=== PATIENT | female | born 1980 | race Caucasian/White ===

== ENCOUNTER 2019-03-27 04:04 | Emergency (ER) | payer BC ==
[~2019-03-27] VITALS: Ht 154.9 cm; Wt 65.8 kg
[2019-03-27 04:08] VITALS: BP 147/69
[2019-03-27] MEDS ORDERED: acetaminophen 325mg tablet PO ONE (04:15)
[2019-03-27 04:44] LABS: BASOPHILS % (AUTO) 0.2 % (0-1); EOSINOPHILS % (AUTO) 0.4 % (0-6); HEMATOCRIT 39.1 % (35.0-45.0); HEMOGLOBIN 13.3 g/dl (12.0-16.0); LYMPHOCYTES # (AUTO) 0.6 X10'3 (1.1-4.8); LYMPHOCYTES % (AUTO) 7.1 % (21-51); MEAN CORPUSCULAR HEMOGLOBIN 32.1 PG (27.0-31.0); MEAN CORPUSCULAR HGB CONC 34.2 g/dL (33.0-36.5); MONOCYTES # (AUTO) 0.1 X10'3 (0-0.9); MONOCYTES % (AUTO) 1.1 % (2-12); NEUTROPHILS # (AUTO) 7.1 X10'3 (1.8-7.7); NEUTROPHILS % (AUTO) 91.2 % (42-75); PLATELET COUNT 174 X10'3 (140-440); RED BLOOD COUNT 4.15 X10'6 (4.20-5.60); RED CELL DISTRIBUTION WIDTH 12.6 % (11.5-14.5); WHITE BLOOD COUNT 7.8 X10'3 (4.5-11.0)
[2019-03-27 04:47] LABS: PARTIAL THROMBOPLASTIN TIME 29 SECONDS (22-32)
[2019-03-27 04:48] LABS: ALANINE AMINOTRANSFERASE 215 U/L (12-78); ALBUMIN 3.4 G/DL (3.4-5.0); ALBUMIN/GLOBULIN RATIO 0.8 (1.1-1.5); ALKALINE PHOSPHATASE 173 IU/L (46-116); ANION GAP 10 (8-16); ASPARTATE AMINO TRANSFERASE 178 U/L (10-37); BLOOD UREA NITROGEN 7 MG/DL (7-18); BUN/CREATININE RATIO 9.1 (6.6-38.0); CALCIUM 8.5 MG/DL (8.5-10.1); CHLORIDE 99 MMOL/L (99-107); CREATININE 0.77 MG/DL (0.40-0.90); GLUCOSE 133 MG/DL (70-104); POTASSIUM 3.8 MMOL/L (3.5-5.1); SODIUM 134 MMOL/L (135-145); TOTAL CARBON DIOXIDE 24.9 MMOL/L (24-32); TOTAL PROTEIN 7.7 G/DL (6.4-8.2); eGFR 84 ML/MIN
== END 2019-03-27 06:14 | disposition left against medical advice (07) ==
LOC: ER 04:04
DX: R53.1 Weakness (principal); R50.9 Fever, unspecified; M79.10 Myalgia, unspecified site; R79.1 Abnormal coagulation profile; Z53.21 Procedure and treatment not carried out due to patient leaving prior to being seen by health care provider
CPT/HCPCS: 36415; 71045; 80053; 83605; 84145; 85025; 85610; 85730; 87040; 99281

== ENCOUNTER 2024-03-19 12:48 | Emergency (ER) | payer BC, MEDICAID ==
[~2024-03-19] VITALS: Ht 157.5 cm; Wt 76.5 kg
[2024-03-19] MEDS ORDERED: AMOX-580 PO (14:04)
[2024-03-19] MEDS ORDERED: TRAM50TA2 PO (14:04)
[2024-03-19 14:13] VITALS: BP 119/75; PULSE 75; RESP 15; TEMP 98.3; O2SAT 96
== END 2024-03-19 14:14 | disposition home or self-care (01) ==
LOC: ER 12:49
DX: K08.89 Other specified disorders of teeth and supporting structures (principal); Z91.041 Radiographic dye allergy status; Z79.2 Long term (current) use of antibiotics; Z79.899 Other long term (current) drug therapy; Z98.890 Other specified postprocedural states; Z90.710 Acquired absence of both cervix and uterus
CPT/HCPCS: 99283

== ENCOUNTER 2024-12-07 19:40 | Inpatient (IN) | payer MEDICAID ==
[~2024-12-07] VITALS: Ht 157.5 cm; Wt 78.9 kg
[2024-12-07 20:18] LABS: BASOPHILS % (AUTO) 0.3 % (0-1); EOSINOPHILS % (AUTO) 0.2 % (0-6); HEMATOCRIT 41.1 % (35.0-45.0); HEMOGLOBIN 14.1 g/dl (12.0-16.0); LYMPHOCYTES # (AUTO) 0.9 X10'3 (1.1-4.8); LYMPHOCYTES % (AUTO) 5.8 % (21-51); MEAN CORPUSCULAR HEMOGLOBIN 31.7 PG (27.0-31.0); MEAN CORPUSCULAR HGB CONC 34.3 g/dL (33.0-36.5); MEAN CORPUSCULAR VOLUME 92.5 FL (78-98); MONOCYTES # (AUTO) 0.4 X10'3 (0-0.9); MONOCYTES % (AUTO) 2.6 % (2-12); NEUTROPHILS # (AUTO) 14.8 X10'3 (1.8-7.7); NEUTROPHILS % (AUTO) 91.1 % (42-75); PLATELET COUNT 352 X10'3 (140-440); RED BLOOD COUNT 4.45 X10'6 (4.20-5.60); RED CELL DISTRIBUTION WIDTH 12.3 % (11.5-14.5); WHITE BLOOD COUNT 16.3 X10'3 (4.5-11.0)
[2024-12-07 20:32] LABS: ALANINE AMINOTRANSFERASE 46 U/L (12-78); ALBUMIN 4.1 G/DL (3.4-5.0); ALKALINE PHOSPHATASE 87 IU/L (46-116); ANION GAP 11 (8-16); ASPARTATE AMINO TRANSFERASE 21 U/L (10-37); BILIRUBIN,TOTAL 0.7 MG/DL (0.1-1.0); BLOOD UREA NITROGEN 11 MG/DL (7-18); BUN/CREATININE RATIO 15.9 (10.0-20.0); CALCIUM 8.9 MG/DL (8.5-10.1); CHLORIDE 106 MMOL/L (99-107); CREATININE 0.69 MG/DL (0.40-0.90); GLUCOSE 149 MG/DL (70-104); POTASSIUM 3.9 MMOL/L (3.5-5.1); SODIUM 140 MMOL/L (135-145); TOTAL CARBON DIOXIDE 22.9 MMOL/L (24-32); TOTAL PROTEIN 8.1 G/DL (6.4-8.2); eCRCL 83 ML/MIN; eGFR > 90 ML/MIN
[2024-12-07 20:36] LABS: LIPASE > 375 U/L (16-77)
[2024-12-07] MEDS: morphine 4 MG/ML inj SYRINge IV ONE (21:44)
[2024-12-07] MEDS: ondansetron/PF 4mg/2ml inj IV ONE (21:44)
[2024-12-07] MEDS ORDERED: potassium Cl 20 mEq SR tablet PO PRN ×2 (22:40)
[2024-12-07] MEDS ORDERED: docusate sod 100mg capsule PO PRN (22:40)
[2024-12-07] MEDS ORDERED: magnesium hydroxide 30ml (MOM) UD suspension PO PRN (22:40)
[2024-12-07] MEDS ORDERED: potassium Cl 40MEQ/1/2NS 520ml 520 ML IV PRN (22:40)
[2024-12-07] MEDS ORDERED: magnesium sulf-water 2g/50mL 50 ML IV PRN (22:40)
[2024-12-07] MEDS ORDERED: magnesium Cl slow-release 64mg tablet PO PRN (22:40)
[2024-12-07] MEDS ORDERED: mag hydrox/Alum hydrox/simeth 30ml oral suspension PO PRN (22:40)
[2024-12-07] MEDS ORDERED: morphine 2 MG/ML inj. syringe IV PRN (22:40)
[2024-12-07] MEDS ORDERED: magnesium sulf-water 4G/100mL 100 ML IV PRN (22:40)
[2024-12-07 23:12] LABS: HEMOGLOBIN A1C 4.6 % (4.5-6.2)
[2024-12-07] MEDS: piperacillin/tazo 4.5gm/100ml 100 ML IV ONE (23:37)
[2024-12-07] MEDS: normal saline 1000ml 1,000 ML IV SCH (23:41)
[2024-12-07 23:44] LABS: LACTATE DEHYDROGENASE 260 U/L (81-234)
[2024-12-08] MEDS ORDERED: piperacillin/tazo 3.375gm/50ml 50 ML IV SCH
[2024-12-08] MEDS: morphine 2 MG/ML inj. syringe IV PRN (00:40)
[2024-12-08 01:42] LABS: URINE HCG NEGATIVE (NEG)
[2024-12-08 01:47] LABS: BILIRUBIN,URINE NEGATIVE (Neg); COLOR,URINE YELLOW (Yellow); GLUCOSE, URINE 250 mg/dl (Neg); KETONES,URINE 40 mg/dl (Neg); LEUKOCYTE ESTERASE ,URINE NEGATIVE (Neg); NITRITES, URINE NEGATIVE (Neg); OCCULT BLOOD,URINE MODERATE (Neg); PROTEIN,URINE 30 mg/dl (Neg); UROBILINOGEN,URINE 0.2 E.U/dL (0.2-1.0)
[2024-12-08 02:05] LABS: URINE AMPHETAMINE SCREEN NEGATIVE (Neg); URINE BARBITUATE SCREEN NEGATIVE (Neg); URINE BENZODIAZEPINES SCREEN NEGATIVE (Neg); URINE CANNABINOID SCREEN NEGATIVE (Neg); URINE COCAINE SCREEN NEGATIVE (Neg); URINE METHADONE SCREEN NEGATIVE (Neg); URINE OPIATE SCREEN POSITIVE (Neg); URINE PHENCYCLIDINE SCREEN NEGATIVE (Neg)
[2024-12-08 02:17] LABS: CLARITY,URINE SLIGHTLY CLOUDY (Clear); UA COLLECTION TYPE CLN CATCH MIDSTREAM
[2024-12-08 02:18] LABS: AMORPHOUS URATES 1+; BACTERIA,URINE 2+ /HPF (Neg); SQUAMOUS EPITHELIAL CELL,UR MODERATE /LPF (FEW); TRANSITIONAL EPI CELLS,URINE FEW /HPF; WBC,URINE 0-4 /HPF (0-4)
[2024-12-08 03:06] LABS: BASOPHILS # (AUTO) 0.1 X10'3 (0-0.2); BASOPHILS % (AUTO) 0.5 % (0-1); EOSINOPHILS # (AUTO) 0.1 X10'3 (0-0.9); EOSINOPHILS % (AUTO) 0.3 % (0-6); HEMATOCRIT 39.5 % (35.0-45.0); LYMPHOCYTES # (AUTO) 1.5 X10'3 (1.1-4.8); LYMPHOCYTES % (AUTO) 9.6 % (21-51); MEAN CORPUSCULAR HEMOGLOBIN 30.9 PG (27.0-31.0); MEAN CORPUSCULAR HGB CONC 32.9 g/dL (33.0-36.5); MONOCYTES # (AUTO) 0.8 X10'3 (0-0.9); MONOCYTES % (AUTO) 5.2 % (2-12); NEUTROPHILS # (AUTO) 13.2 X10'3 (1.8-7.7); NEUTROPHILS % (AUTO) 84.4 % (42-75); PLATELET COUNT 326 X10'3 (140-440); RED CELL DISTRIBUTION WIDTH 12.5 % (11.5-14.5); WHITE BLOOD COUNT 15.6 X10'3 (4.5-11.0)
[2024-12-08 03:33] LABS: ALANINE AMINOTRANSFERASE 40 U/L (12-78); ALBUMIN 3.5 G/DL (3.4-5.0); ALKALINE PHOSPHATASE 77 IU/L (46-116); ANION GAP 8 (8-16); ASPARTATE AMINO TRANSFERASE 18 U/L (10-37); BILIRUBIN,TOTAL 0.7 MG/DL (0.1-1.0); BLOOD UREA NITROGEN 9 MG/DL (7-18); BUN/CREATININE RATIO 13.2 (10.0-20.0); CALCIUM 8.1 MG/DL (8.5-10.1); CHLORIDE 107 MMOL/L (99-107); CHOL/HDL RATIO 3.9 (0.00-4.99); CHOLESTEROL 192 MG/DL (0-200); CREATININE 0.68 MG/DL (0.40-0.90); GLUCOSE 110 MG/DL (70-104); HDL CHOLESTEROL 49 MG/DL (35-60); LDL CHOLESTEROL 121 MG/DL (50-100); POTASSIUM 3.9 MMOL/L (3.5-5.1); SODIUM 141 MMOL/L (135-145); TOTAL PROTEIN 7.1 G/DL (6.4-8.2); TRIGLYCERIDES 40 MG/DL (20-135); eCRCL 84 ML/MIN; eGFR > 90 ML/MIN
[2024-12-08 07:29] VITALS: BP 115/62; PULSE 67; RESP 20; TEMP 98.1; O2SAT 98
[2024-12-08] MEDS: piperacillin/tazo 3.375gm/50ml 50 ML IV SCH (07:58)
[2024-12-08] MEDS: pantoprazole 40mg Tablet.DR PO SCH (07:58)
[2024-12-08] MEDS: morphine 2 MG/ML inj. syringe IV ONE (07:58)
[2024-12-08] MEDS: heparin, porcine 5000 units/ml vial SQ SCH (07:59)
[2024-12-08] MEDS: K and/or MAG REPLACEMENT MC SCH (08:00)
[2024-12-08] MEDS: nicotine 14mg patch - 24hr TD SCH (08:00)
[2024-12-08] MEDS ORDERED: HYDROcodone/acetaminophen 5mg/325mg tablet PO PRN (08:30)
[2024-12-08 10:00] VITALS: BP 121/71; PULSE 77; RESP 20; TEMP 98.7; O2SAT 99
[2024-12-08] MEDS: HYDROcodone/acetaminophen 10/325mg tab PO PRN (10:26)
[2024-12-08] MEDS: ringers solution, lacted 1,000 ML IV SCH (10:27)
[2024-12-08] MEDS ORDERED: NO HOME MEDS (16:18)
[2024-12-08 18:00] VITALS: BP 94/47; PULSE 91; RESP 14; TEMP 97.7; O2SAT 95
[2024-12-08] MEDS: HYDROcodone/acetaminophen 5mg/325mg tablet PO PRN (19:24)
[2024-12-08 19:30] VITALS: RESP 18; O2SAT 95
[2024-12-08 20:00] VITALS: RESP 14; O2SAT 95
[2024-12-08 22:00] VITALS: BP 97/53; PULSE 79; RESP 16; TEMP 100; O2SAT 99
[2024-12-08] MEDS: acetaminophen 325mg tablet PO PRN (23:27)
[2024-12-08] MEDS: ondansetron/PF 4mg/2ml inj IV PRN (23:57)
[2024-12-09 06:00] VITALS: BP 107/52; PULSE 68; RESP 14; TEMP 97.9; O2SAT 98
[2024-12-09 06:30] LABS: BASOPHILS % (AUTO) 0.2 % (0-1); EOSINOPHILS # (AUTO) 0.1 X10'3 (0-0.9); EOSINOPHILS % (AUTO) 0.9 % (0-6); HEMATOCRIT 34.6 % (35.0-45.0); LYMPHOCYTES # (AUTO) 1.3 X10'3 (1.1-4.8); MEAN CORPUSCULAR HEMOGLOBIN 32.5 PG (27.0-31.0); MEAN CORPUSCULAR HGB CONC 34.7 g/dL (33.0-36.5); MEAN CORPUSCULAR VOLUME 93.7 FL (78-98); MEAN PLATELET VOLUME 9.5 FL (7.4-10.4); MONOCYTES % (AUTO) 7.1 % (2-12); NEUTROPHILS # (AUTO) 11.7 X10'3 (1.8-7.7); NEUTROPHILS % (AUTO) 82.8 % (42-75); PLATELET COUNT 193 X10'3 (140-440); RED CELL DISTRIBUTION WIDTH 12.3 % (11.5-14.5); WHITE BLOOD COUNT 14.1 X10'3 (4.5-11.0)
[2024-12-09 06:53] LABS: ALANINE AMINOTRANSFERASE 31 U/L (12-78); ALBUMIN 2.8 G/DL (3.4-5.0); ALBUMIN/GLOBULIN RATIO 0.8 (1.1-1.5); ALKALINE PHOSPHATASE 75 IU/L (46-116); ANION GAP 8 (8-16); ASPARTATE AMINO TRANSFERASE 16 U/L (10-37); BILIRUBIN,TOTAL 1.3 MG/DL (0.1-1.0); BLOOD UREA NITROGEN 3 MG/DL (7-18); BUN/CREATININE RATIO 5.2 (10.0-20.0); CALCIUM 7.7 MG/DL (8.5-10.1); CHLORIDE 106 MMOL/L (99-107); CREATININE 0.58 MG/DL (0.40-0.90); GLUCOSE 80 MG/DL (70-104); MAGNESIUM 1.8 MG/DL (1.5-2.4); POTASSIUM 3.6 MMOL/L (3.5-5.1); SODIUM 139 MMOL/L (135-145); TOTAL CARBON DIOXIDE 25.4 MMOL/L (24-32); TOTAL PROTEIN 6.3 G/DL (6.4-8.2); eCRCL 99 ML/MIN; eGFR > 90 ML/MIN
[2024-12-09] MEDS: acetaminophen 325mg tablet PO PRN (08:52)
[2024-12-09 10:00] VITALS: BP 102/62; PULSE 81; RESP 14; TEMP 98.7; O2SAT 98
[2024-12-09 22:00] VITALS: BP 101/45; PULSE 75; RESP 14; TEMP 99; O2SAT 98
[2024-12-10 05:35] LABS: BASOPHILS # (AUTO) 0.1 X10'3 (0-0.2); BASOPHILS % (AUTO) 0.6 % (0-1); EOSINOPHILS # (AUTO) 0.2 X10'3 (0-0.9); EOSINOPHILS % (AUTO) 1.4 % (0-6); HEMATOCRIT 34.2 % (35.0-45.0); HEMOGLOBIN 11.7 g/dl (12.0-16.0); LYMPHOCYTES # (AUTO) 1.1 X10'3 (1.1-4.8); LYMPHOCYTES % (AUTO) 7.9 % (21-51); MEAN CORPUSCULAR HEMOGLOBIN 32.5 PG (27.0-31.0); MEAN CORPUSCULAR HGB CONC 34.2 g/dL (33.0-36.5); MEAN CORPUSCULAR VOLUME 94.9 FL (78-98); MEAN PLATELET VOLUME 8.8 FL (7.4-10.4); MONOCYTES # (AUTO) 0.9 X10'3 (0-0.9); MONOCYTES % (AUTO) 6.9 % (2-12); NEUTROPHILS # (AUTO) 11.4 X10'3 (1.8-7.7); NEUTROPHILS % (AUTO) 83.2 % (42-75); PLATELET COUNT 234 X10'3 (140-440); RED CELL DISTRIBUTION WIDTH 12.5 % (11.5-14.5); WHITE BLOOD COUNT 13.7 X10'3 (4.5-11.0)
[2024-12-10 06:00] VITALS: BP 98/52; PULSE 90; RESP 14; TEMP 97.3; O2SAT 98
[2024-12-10 06:03] LABS: ALANINE AMINOTRANSFERASE 36 U/L (12-78); ALBUMIN 2.7 G/DL (3.4-5.0); ALBUMIN/GLOBULIN RATIO 0.7 (1.1-1.5); ALKALINE PHOSPHATASE 94 IU/L (46-116); ANION GAP 10 (8-16); ASPARTATE AMINO TRANSFERASE 25 U/L (10-37); BLOOD UREA NITROGEN 2 MG/DL (7-18); BUN/CREATININE RATIO 3.7 (10.0-20.0); CALCIUM 7.7 MG/DL (8.5-10.1); CHLORIDE 105 MMOL/L (99-107); CREATININE 0.54 MG/DL (0.40-0.90); GLUCOSE 88 MG/DL (70-104); MAGNESIUM 1.9 MG/DL (1.5-2.4); POTASSIUM 3.7 MMOL/L (3.5-5.1); SODIUM 137 MMOL/L (135-145); TOTAL CARBON DIOXIDE 22.2 MMOL/L (24-32); TOTAL PROTEIN 6.4 G/DL (6.4-8.2); eCRCL 106 ML/MIN; eGFR > 90 ML/MIN
[2024-12-10 10:21] VITALS: BP 100/57; PULSE 79; RESP 14; TEMP 97.5; O2SAT 98
[2024-12-10 16:44] LABS: LIPASE 51 U/L (16-77)
[2024-12-10 18:00] VITALS: BP 105/62; PULSE 87; RESP 16; TEMP 99.8; O2SAT 98
[2024-12-10] MEDS: diatr meglu/diatrizoate 30ml oral sol.-(3 dose) bottle PO SCH (21:00)
[2024-12-10 22:00] VITALS: BP 101/46; PULSE 74; RESP 18; TEMP 97.7; O2SAT 97
[2024-12-11 05:40] LABS: BASOPHILS # (AUTO) 0.1 X10'3 (0-0.2); BASOPHILS % (AUTO) 0.7 % (0-1); EOSINOPHILS # (AUTO) 0.3 X10'3 (0-0.9); EOSINOPHILS % (AUTO) 2.1 % (0-6); HEMATOCRIT 32.1 % (35.0-45.0); HEMOGLOBIN 11.1 g/dl (12.0-16.0); LYMPHOCYTES # (AUTO) 0.8 X10'3 (1.1-4.8); LYMPHOCYTES % (AUTO) 6.4 % (21-51); MEAN CORPUSCULAR HEMOGLOBIN 32.3 PG (27.0-31.0); MEAN CORPUSCULAR HGB CONC 34.6 g/dL (33.0-36.5); MEAN CORPUSCULAR VOLUME 93.4 FL (78-98); MEAN PLATELET VOLUME 8.9 FL (7.4-10.4); MONOCYTES # (AUTO) 0.9 X10'3 (0-0.9); NEUTROPHILS # (AUTO) 11.1 X10'3 (1.8-7.7); NEUTROPHILS % (AUTO) 83.8 % (42-75); PLATELET COUNT 233 X10'3 (140-440); RED BLOOD COUNT 3.44 X10'6 (4.20-5.60); RED CELL DISTRIBUTION WIDTH 11.9 % (11.5-14.5); WHITE BLOOD COUNT 13.3 X10'3 (4.5-11.0)
[2024-12-11 06:00] VITALS: BP 114/54; PULSE 86; RESP 16; TEMP 98.4; O2SAT 96
[2024-12-11 06:12] LABS: ALANINE AMINOTRANSFERASE 33 U/L (12-78); ALBUMIN 2.6 G/DL (3.4-5.0); ALBUMIN/GLOBULIN RATIO 0.7 (1.1-1.5); ALKALINE PHOSPHATASE 93 IU/L (46-116); ANION GAP 11 (8-16); ASPARTATE AMINO TRANSFERASE 15 U/L (10-37); BILIRUBIN,TOTAL 0.7 MG/DL (0.1-1.0); BLOOD UREA NITROGEN 1 MG/DL (7-18); BUN/CREATININE RATIO 2.1 (10.0-20.0); CALCIUM 7.7 MG/DL (8.5-10.1); CHLORIDE 106 MMOL/L (99-107); CREATININE 0.48 MG/DL (0.40-0.90); GLUCOSE 88 MG/DL (70-104); LIPASE 43 U/L (16-77); MAGNESIUM 1.9 MG/DL (1.5-2.4); POTASSIUM 3.4 MMOL/L (3.5-5.1); SODIUM 138 MMOL/L (135-145); TOTAL CARBON DIOXIDE 20.7 MMOL/L (24-32); TOTAL PROTEIN 6.4 G/DL (6.4-8.2); eCRCL 120 ML/MIN; eGFR > 90 ML/MIN
[2024-12-11 08:00] VITALS: RESP 16; O2SAT 96
[2024-12-11 10:00] VITALS: BP 110/62; PULSE 82; RESP 16; TEMP 98; O2SAT 97
[2024-12-11] MEDS ORDERED: iohexol 300mg/ml 100ml inj. ONE (10:03)
[2024-12-11] MEDS: lactose-reduced food (Ensure Enlive) - 237ml bottle PO SCH (13:00)
[2024-12-11 18:00] VITALS: BP 92/47; PULSE 71; RESP 16; TEMP 98; O2SAT 95
[2024-12-11] MEDS ORDERED: potassium Cl 20 mEq SR tablet PO PRN (19:55)
[2024-12-11] MEDS ORDERED: magnesium sulf-water 2g/50mL 50 ML IV PRN (19:55)
[2024-12-11] MEDS ORDERED: magnesium Cl slow-release 64mg tablet PO PRN (19:55)
[2024-12-11] MEDS ORDERED: magnesium sulf-water 4G/100mL 100 ML IV PRN (19:55)
[2024-12-11] MEDS ORDERED: potassium Cl 40MEQ/1/2NS 520ml 520 ML IV PRN (19:55)
[2024-12-11 20:00] VITALS: RESP 16; O2SAT 96
[2024-12-11] MEDS: K and/or MAG REPLACEMENT MC SCH (20:00)
[2024-12-11] MEDS: potassium Cl 20 mEq SR tablet PO PRN (20:16)
[2024-12-11 22:00] VITALS: BP 99/54; PULSE 72; RESP 18; TEMP 98.7; O2SAT 98
[2024-12-12] VITALS (9 sets, daily range): BP systolic 87–116; BP diastolic 46–61; PULSE 68–83; RESP 14–18; TEMP 97.9–99.2; O2SAT 92–98
[2024-12-12 06:14] LABS: BASOPHILS # (AUTO) 0.1 X10'3 (0-0.2); BASOPHILS % (AUTO) 0.8 % (0-1); EOSINOPHILS # (AUTO) 0.3 X10'3 (0-0.9); EOSINOPHILS % (AUTO) 2.7 % (0-6); HEMOGLOBIN 10.5 g/dl (12.0-16.0); LYMPHOCYTES # (AUTO) 1.3 X10'3 (1.1-4.8); LYMPHOCYTES % (AUTO) 10.7 % (21-51); MEAN CORPUSCULAR HEMOGLOBIN 32.8 PG (27.0-31.0); MEAN CORPUSCULAR HGB CONC 35.2 g/dL (33.0-36.5); MEAN CORPUSCULAR VOLUME 93.1 FL (78-98); MEAN PLATELET VOLUME 9.5 FL (7.4-10.4); MONOCYTES # (AUTO) 0.8 X10'3 (0-0.9); MONOCYTES % (AUTO) 6.2 % (2-12); NEUTROPHILS # (AUTO) 9.8 X10'3 (1.8-7.7); NEUTROPHILS % (AUTO) 79.6 % (42-75); PLATELET COUNT 193 X10'3 (140-440); RED BLOOD COUNT 3.22 X10'6 (4.20-5.60); WHITE BLOOD COUNT 12.3 X10'3 (4.5-11.0)
[2024-12-12 06:41] LABS: ALANINE AMINOTRANSFERASE 40 U/L (12-78); ALBUMIN 2.3 G/DL (3.4-5.0); ALBUMIN/GLOBULIN RATIO 0.6 (1.1-1.5); ALKALINE PHOSPHATASE 131 IU/L (46-116); ANION GAP 6 (8-16); ASPARTATE AMINO TRANSFERASE 35 U/L (10-37); BILIRUBIN,TOTAL 0.6 MG/DL (0.1-1.0); BLOOD UREA NITROGEN 1 MG/DL (7-18); BUN/CREATININE RATIO 2.3 (10.0-20.0); CALCIUM 7.8 MG/DL (8.5-10.1); CHLORIDE 106 MMOL/L (99-107); CREATININE 0.44 MG/DL (0.40-0.90); GLUCOSE 82 MG/DL (70-104); POTASSIUM 3.6 MMOL/L (3.5-5.1); SODIUM 139 MMOL/L (135-145); TOTAL CARBON DIOXIDE 27.4 MMOL/L (24-32); eCRCL 130 ML/MIN; eGFR > 90 ML/MIN
[2024-12-13] VITALS (19 sets, daily range): BP systolic 114–139; BP diastolic 57–78; PULSE 59–85; RESP 12–24; TEMP 98–98.3; O2SAT 91–100
[2024-12-13 08:27] LABS: ALANINE AMINOTRANSFERASE 70 U/L (12-78); ALBUMIN 2.3 G/DL (3.4-5.0); ALBUMIN/GLOBULIN RATIO 0.6 (1.1-1.5); ALKALINE PHOSPHATASE 170 IU/L (46-116); ANION GAP 7 (8-16); ASPARTATE AMINO TRANSFERASE 58 U/L (10-37); BASOPHILS # (AUTO) 0.1 X10'3 (0-0.2); BASOPHILS % (AUTO) 0.5 % (0-1); BILIRUBIN,TOTAL 0.5 MG/DL (0.1-1.0); BLOOD UREA NITROGEN 3 MG/DL (7-18); BUN/CREATININE RATIO 6.4 (10.0-20.0); CHLORIDE 105 MMOL/L (99-107); CREATININE 0.47 MG/DL (0.40-0.90); EOSINOPHILS # (AUTO) 0.3 X10'3 (0-0.9); GLUCOSE 91 MG/DL (70-104); HEMATOCRIT 30.6 % (35.0-45.0); HEMOGLOBIN 10.5 g/dl (12.0-16.0); LYMPHOCYTES # (AUTO) 0.9 X10'3 (1.1-4.8); LYMPHOCYTES % (AUTO) 7.9 % (21-51); MEAN CORPUSCULAR HEMOGLOBIN 31.9 PG (27.0-31.0); MEAN CORPUSCULAR HGB CONC 34.2 g/dL (33.0-36.5); MEAN CORPUSCULAR VOLUME 93.3 FL (78-98); MEAN PLATELET VOLUME 10.2 FL (7.4-10.4); MONOCYTES # (AUTO) 0.7 X10'3 (0-0.9); MONOCYTES % (AUTO) 6.6 % (2-12); NEUTROPHILS # (AUTO) 9.1 X10'3 (1.8-7.7); PLATELET COUNT 213 X10'3 (140-440); POTASSIUM 3.4 MMOL/L (3.5-5.1); RED BLOOD COUNT 3.28 X10'6 (4.20-5.60); RED CELL DISTRIBUTION WIDTH 12.3 % (11.5-14.5); SODIUM 139 MMOL/L (135-145); TOTAL CARBON DIOXIDE 26.6 MMOL/L (24-32); TOTAL PROTEIN 6.3 G/DL (6.4-8.2); WHITE BLOOD COUNT 11.2 X10'3 (4.5-11.0); eCRCL 122 ML/MIN; eGFR > 90 ML/MIN
[2024-12-13] MEDS ORDERED: BUPIVAcaine 2.5mg/ml inj 50ml vial (contains preservative) ONE (13:08)
[2024-12-13] MEDS: ringers solution, lacted 1,000 ML IV SCH (13:55)
[2024-12-13] MEDS ORDERED: ondansetron/PF 4mg/2ml inj IV PRN (13:55)
[2024-12-13] MEDS ORDERED: labetalol 20mg/4ml (5mg/ml) syringe IV PRN (13:55)
[2024-12-13] MEDS ORDERED: morphine 2 MG/ML inj. syringe IV PRN (13:55)
[2024-12-13] MEDS ORDERED: HYDROmorphone/PF 0.2 MG/ML SYRINGE IV PRN (13:55)
[2024-12-13] MEDS ORDERED: propofol inj 20 ML IV ONE (14:05)
[2024-12-13] MEDS ORDERED: rocuronium 10mg/ml inj IV ONE (14:07)
[2024-12-13] MEDS ORDERED: fentaNYL/PF 50MCG/1 ML 2ML syringe ONE (14:09)
[2024-12-13] MEDS ORDERED: midazolam 1 mg/ML 2ml injection ONE (14:09)
[2024-12-13] MEDS ORDERED: sevoflurane 250ml liquid IH ONE (14:19)
[2024-12-13] MEDS ORDERED: ceFAZolin 1000mg inj ONE ×2 (14:37)
[2024-12-13] MEDS ORDERED: dexamethasone sod phosphate 4mg/ml inj. ONE (14:37)
[2024-12-13] MEDS: BUPIVAcaine/PF 2.5 mg/ml (0.25%) 30ml vial IJ ONE (15:02)
[2024-12-13] MEDS ORDERED: ondansetron/PF 4mg/2ml inj ONE (15:09)
[2024-12-13] MEDS ORDERED: neostigmine methylsulfate 1 MG/ML 10ml vial ONE (15:10)
[2024-12-13] MEDS ORDERED: glycopyrrolate 0.2mg/ml inj ONE (15:10)
[2024-12-13] MEDS: acetaminophen 1,000mg/100ml IV 100 ML IV PRN (15:48)
[2024-12-13] MEDS ORDERED: HYDROcodone/acetaminophen 5mg/325mg tablet PO PRN (15:55)
[2024-12-13] MEDS ORDERED: naloxone 0.4 mg/ml inj IV PRN (15:55)
[2024-12-13] MEDS: morphine 4 MG/ML inj SYRINge IV PRN (15:57)
[2024-12-13] MEDS: HYDROmorphone/PF 0.2 MG/ML SYRINGE IV PRN (16:05)
[2024-12-14 02:00] VITALS: BP 105/66; PULSE 51; RESP 18; TEMP 98.2; O2SAT 97
[2024-12-14 06:00] VITALS: BP 98/66; PULSE 54; RESP 16; TEMP 98.3; O2SAT 97
[2024-12-14 08:00] VITALS: RESP 16; O2SAT 97
[2024-12-14 08:35] LABS: BASOPHILS # (AUTO) 0.1 X10'3 (0-0.2); BASOPHILS % (AUTO) 0.5 % (0-1); EOSINOPHILS % (AUTO) 0.3 % (0-6); HEMATOCRIT 32.9 % (35.0-45.0); HEMOGLOBIN 11.2 g/dl (12.0-16.0); LYMPHOCYTES # (AUTO) 1.2 X10'3 (1.1-4.8); LYMPHOCYTES % (AUTO) 10.4 % (21-51); MEAN CORPUSCULAR HGB CONC 33.9 g/dL (33.0-36.5); MEAN CORPUSCULAR VOLUME 94.4 FL (78-98); MONOCYTES # (AUTO) 0.7 X10'3 (0-0.9); MONOCYTES % (AUTO) 6.2 % (2-12); NEUTROPHILS # (AUTO) 9.1 X10'3 (1.8-7.7); NEUTROPHILS % (AUTO) 82.6 % (42-75); PLATELET COUNT 310 X10'3 (140-440); RED BLOOD COUNT 3.49 X10'6 (4.20-5.60); RED CELL DISTRIBUTION WIDTH 12.2 % (11.5-14.5)
[2024-12-14 08:46] LABS: ALANINE AMINOTRANSFERASE 88 U/L (12-78); ALBUMIN 2.5 G/DL (3.4-5.0); ALBUMIN/GLOBULIN RATIO 0.6 (1.1-1.5); ALKALINE PHOSPHATASE 236 IU/L (46-116); ANION GAP 5 (8-16); ASPARTATE AMINO TRANSFERASE 82 U/L (10-37); BILIRUBIN,TOTAL 0.4 MG/DL (0.1-1.0); BLOOD UREA NITROGEN 3 MG/DL (7-18); BUN/CREATININE RATIO 6.3 (10.0-20.0); CALCIUM 8.2 MG/DL (8.5-10.1); CHLORIDE 106 MMOL/L (99-107); CREATININE 0.48 MG/DL (0.40-0.90); GLUCOSE 98 MG/DL (70-104); POTASSIUM 4.5 MMOL/L (3.5-5.1); SODIUM 137 MMOL/L (135-145); TOTAL CARBON DIOXIDE 25.9 MMOL/L (24-32); TOTAL PROTEIN 6.6 G/DL (6.4-8.2); eCRCL 120 ML/MIN; eGFR > 90 ML/MIN
[2024-12-14 10:00] VITALS: BP 109/44; PULSE 59; RESP 15; TEMP 98; O2SAT 97
[2024-12-14 18:00] VITALS: BP 117/59; PULSE 77; RESP 16; TEMP 98.5; O2SAT 99
[2024-12-14] MEDS: docusate sod 100mg capsule PO SCH (19:58)
[2024-12-14 22:00] VITALS: BP 121/50; PULSE 72; RESP 14; TEMP 98.8; O2SAT 97
[2024-12-15 04:57] LABS: BASOPHILS # (AUTO) 0.1 X10'3 (0-0.2); BASOPHILS % (AUTO) 0.6 % (0-1); EOSINOPHILS # (AUTO) 0.5 X10'3 (0-0.9); EOSINOPHILS % (AUTO) 4.3 % (0-6); HEMATOCRIT 33.9 % (35.0-45.0); HEMOGLOBIN 11.3 g/dl (12.0-16.0); LYMPHOCYTES # (AUTO) 1.6 X10'3 (1.1-4.8); LYMPHOCYTES % (AUTO) 14.8 % (21-51); MEAN CORPUSCULAR HEMOGLOBIN 31.3 PG (27.0-31.0); MEAN CORPUSCULAR HGB CONC 33.2 g/dL (33.0-36.5); MEAN CORPUSCULAR VOLUME 94.2 FL (78-98); MEAN PLATELET VOLUME 7.8 FL (7.4-10.4); MONOCYTES # (AUTO) 0.8 X10'3 (0-0.9); NEUTROPHILS # (AUTO) 8.1 X10'3 (1.8-7.7); NEUTROPHILS % (AUTO) 73.3 % (42-75); PLATELET COUNT 336 X10'3 (140-440); RED CELL DISTRIBUTION WIDTH 12.6 % (11.5-14.5); WHITE BLOOD COUNT 11.1 X10'3 (4.5-11.0)
[2024-12-15 05:26] LABS: ALANINE AMINOTRANSFERASE 130 U/L (12-78); ALBUMIN 2.4 G/DL (3.4-5.0); ALBUMIN/GLOBULIN RATIO 0.6 (1.1-1.5); ALKALINE PHOSPHATASE 250 IU/L (46-116); ANION GAP 8 (8-16); ASPARTATE AMINO TRANSFERASE 125 U/L (10-37); BILIRUBIN,TOTAL 0.4 MG/DL (0.1-1.0); BLOOD UREA NITROGEN 3 MG/DL (7-18); CHLORIDE 105 MMOL/L (99-107); GLUCOSE 80 MG/DL (70-104); POTASSIUM 3.8 MMOL/L (3.5-5.1); SODIUM 139 MMOL/L (135-145); TOTAL CARBON DIOXIDE 26.5 MMOL/L (24-32); TOTAL PROTEIN 6.4 G/DL (6.4-8.2); eCRCL 115 ML/MIN; eGFR > 90 ML/MIN
[2024-12-15 06:00] VITALS: BP 117/56; PULSE 78; RESP 14; TEMP 98.9; O2SAT 96
[2024-12-15 08:00] VITALS: RESP 14; O2SAT 96
[2024-12-15 10:00] VITALS: BP 129/68; PULSE 72; RESP 18; TEMP 98.8; O2SAT 98
[2024-12-15] MEDS ORDERED: NICO-631 TD (15:33)
[2024-12-15 17:14] VITALS: RESP 18
[2024-12-15] MEDS ORDERED: HYDR-3965 PO (17:58)
== END 2024-12-15 17:45 | disposition home or self-care (01) | DRG 263 ==
LOC: ER 19:41 → ED HOLD 22:12 → SUR 3N 12-08 07:03
PROVIDERS: ADMIT Internal Medicine Pulmonary Disease; ATTEND Internal Medicine
PROC: BW211ZZ Computerized Tomography (CT Scan) of Abdomen and Pelvis using Low Osmolar Contrast (ICD-10-PCS; 2024-12-11)
PROC: 8E0W4CZ Robotic Assisted Procedure of Trunk Region, Percutaneous Endoscopic Approach (ICD-10-PCS; 2024-12-13)
PROC: 0FT44ZZ Resection of Gallbladder, Percutaneous Endoscopic Approach (ICD-10-PCS; principal; 2024-12-13 14:19)
DX: K85.10 Biliary acute pancreatitis without necrosis or infection (principal); E44.1 Mild protein-calorie malnutrition; Z20.822 Contact with and (suspected) exposure to COVID-19; E66.9 Obesity, unspecified; D72.829 Elevated white blood cell count, unspecified; A08.8 Other specified intestinal infections; Z87.891 Personal history of nicotine dependence; Z88.1 Allergy status to other antibiotic agents; Z98.891 History of uterine scar from previous surgery; Z90.710 Acquired absence of both cervix and uterus; Z68.31 Body mass index [BMI] 31.0-31.9, adult
CPT/HCPCS: 36415; 71045; 74176; 74177; 74181; 80053; 80061; 80305; 81001; 81025; 82948; 83036; 83605; 83615; 83690; 83735; 84145; 85025; 87081; 87502; 87503; 87811; 93005; 96374; 96375; 99285; A4215; A4618; A6258; A7000; G0378; J0131; J0690; J1100; J1171; J1644; J2250; J2270; J2405; J2543; J2704; J2710; J3010; J3490; J7030; J7120; Q9963; Q9967

== ENCOUNTER 2025-03-11 14:03 | Emergency (ER) | payer MEDICAID ==
[~2025-03-11] VITALS: Ht 157.5 cm; Wt 61.1 kg
[~2025-03-11 14:03] MED LIST: NO HOME MEDS
[2025-03-11 14:05] VITALS: BP 138/63; PULSE 85; RESP 16; TEMP 97.4; O2SAT 96
--- NOTE | 2025-03-11 14:18 | Physician Documentation ---
History of Present Illness ~ Chief Complaint: Abdominal Pain Stated Complaint: POST OP COMPLICATIONS Time Seen by MD: 14:43 Primary Medical Doctor: NONE HPI 44-year-old female complains of epigastric pain, abdominal bloating, loose stools with mucus for about two weeks. She endorses having her gallbladder removed two months ago. Patient denies any blood in her stool. Patient has tried antacids at home without relief. Patient's primary care provider instructed her to go to urgent care but she decided to go to the ER has urgent care was going to take too much time. Medication Reconciliation Allergies: Coded Allergies: erythromycin base (Unverified Allergy, Unknown, 03/11/25) Scheduled Loperamide Hcl/Simethicone (Imodium Ms Relief Caplet), 1 TAB PO Q6H Metronidazole* (Flagyl*), 1 TAB PO Q12H Pantoprazole Sodium (Pantoprazole Sodium), 1 TAB PO DAILY Miscellaneous Medications Home Med List (No Home Medications), (Reported) Past Medical History Past Medical History: No Pertinent History Past Surgical History: , hysterectomy Patient History: Bone cancer MOTHER FH: diabetes mellitus FATHER Paternal Grandmother Alcohol Use: Occasionally Drug Use: none Lives with: Family Lives In: Home Review of Systems All Other Systems at this time: Reviewed and Negative Gastrointestinal: Reports: see HPI Physical Exam Vital Signs: RN Vital Signs have been reviewed: Yes, Temperature: 97.4, Source: Oral, Heart Rate: 85, Respiratory Rate: 16, BP: 138/63, Pulse Oximetry: 96, Weight: 61.080 Oxygen Flow Rate: 0 General Appearance: alert, WD/WN, no apparent distress Respiratory: lungs clear, normal breath sounds, no respiratory distress Chest: no accessory muscle use, chest non-tender Gastrointestinal: bowels sounds present; No: mass, rebound, guarding, rigidity Gastrointestinal Epigastric tenderness with palpation no CVA tenderness. Progress Results/Orders Results/Orders Completed Orders - MARIAMA WINTERS MD Hcg, Ur Ql (03/11/25 14:09) Cbc/Diff (03/11/25 14:09) BMP (03/11/25 14:09) Amylase (03/11/25 14:09) Lipase (03/11/25 14:09) CMP (03/11/25 14:09) Ua W/Microscopic, Cult If Ind (03/11/25 14:44) Laboratory Tests Test 03/11/25 14:19 03/11/25 14:44 White Blood Count 8.8 Red Blood Count 4.40 Hemoglobin 14.1 Hematocrit 40.7 Mean Corpuscular Volume 92.5 Mean Corpuscular Hemoglobin 32.0 H Mean Corpuscular Hemoglobin Concent 34.6 Red Cell Distribution Width 12.5 Platelet Count 296 Mean Platelet Volume 9.4 Neutrophils (%) (Auto) 75.6 H Lymphocytes (%) (Auto) 17.2 L Monocytes (%) (Auto) 5.5 Eosinophils (%) (Auto) 1.0 Basophils (%) (Auto) 0.7 Neutrophils # (Auto) 6.7 Lymphocytes # (Auto) 1.5 Monocytes # (Auto) 0.5 Eosinophils # (Auto) 0.1 Basophils # (Auto) 0.1 CBC Comment Sodium Level 135 Potassium Level 3.5 Chloride Level 103 Carbon Dioxide Level 24.0 Anion Gap 8 Blood Urea Nitrogen 9 Creatinine 0.78 Estimated GFR/1.73 m2 81 BUN/Creatinine Ratio 11.5 Glucose Level 103 Calcium Level 8.8 Total Bilirubin 0.7 Aspartate Amino Transf (AST/SGOT) 26 Alanine Aminotransferase (ALT/SGPT) 65 Alkaline Phosphatase 110 Total Protein 7.7 Albumin 4.0 Globulin 3.7 Albumin/Globulin Ratio 1.1 Amylase Level 45 Lipase 17 Chemistry Comments Urine Specimen Description Cln catch midstream Urine Color Yellow Urine Clarity Slightly cloudy Urine pH 6.0 Urine Specific [place] >=1.030 Urine Protein 30 H Urine Glucose (UA) Negative Urine Ketones 40 H Urine Occult Blood Small Urine Nitrite Negative Urine Bilirubin Small Urine Urobilinogen 0.2 Urine Leukocyte Esterase Negative Urine RBC 3-10 Urine WBC 0-4 Urine Squamous Epithelial Cells Many Urine Transitional Epithelial Cells Few Urine Calcium Oxalate Crystals 4+ Urine Bacteria 2+ Urine Mucus Moderate Urine Culture Indicated Not ind Volume Urine Centrifuged 10 ml Urine HCG, Qualitative Negative Urine Comment EKG/XRAY/CT/US/VASC/MRI CT : Impression Indication: ABD PAIN Technique: CT axial images of the abdomen and pelvis are obtained with intravenous contrast. Coronal and sagittal reformats were obtained. Radiation Dose Information: CTDI volume is 18.3 mGy. Dose-length product is 894 mGy*cm Comparison: CT CT ABDOMEN PELVIS W/ IV ORAL CONTRAST on DOS: 12/11/24, FINDINGS: Lung bases demonstrate no pleural effusion. Adrenal glands, spleen and pancreas unremarkable in shape. Gallbladder appears to be contracted/removed. Liver unremarkable in shape. Kidneys demonstrate no hydronephrosis, nephrolithiasis. Stomach partially distended. Small bowel loops are normal in caliber. Moderate distention large bowel loops with fluid contents. Normal appendix. Bladder is partially distended. Small amount of free pelvic fluid. No inguinal lymphadenopathy. Yvaw-ka-hdgmtnyf bilateral sacroiliac degenerative joint disease. Jqkf-di-isxzslcy thoracolumbar degenerative disc disease. Infraumbilical hernia containing fat measuring 3.8 x 3.4 cm. IMPRESSION: Fluid distention of the large bowel could represent diarrheal state, colitis. Small amount of free pelvic fluid. Infraumbilical hernia containing fat measuring 3.8 cm Other findings as described. Medical Decision Making Findings acute onset diarrhea status post cholecystectomy two months ago. No fevers no blood but she does have mucus in her stool. Patient has not really tried any gmbm-lvj-xldysdh medications except some acid reflux medication. She did get a GI cocktail which did make her feel better no episodes of stool here. CT does indicate potentially colitis. Labs are reassuring and vital signs are reassuring. We will give her medication for some that reflexes while as antidiarrheal medications and Flagyl discussed infected processes for colitis, food-borne illness or by round etiologies. Patient will follow up with primary care discussed importance of staying well hydrated. Departure Time of Disposition: 17:25 Disposition: HOME / SELF CARE / HOMELESS Impression: Primary Impression: Colitis Additional Impression: Diarrhea Condition: Stable Discharge Instructions: Colitis Additional Instructions: Medication as prescribed and follow up with primary care. Stay well hydrated and monitor for any worsening signs or symptoms. Referrals: NO PRIMARY CARE PROVIDER (PCP) Prescriptions Loperamide Hcl/Simethicone (Imodium Ms Relief Caplet) 2 Mg-125 Mg Tablet 1 TAB PO Q6H for loose stool for 10 Days, #40 TAB 0 Refills Prov: LELAND TOMLINSON [employer] 03/11/25 Pantoprazole Sodium (Pantoprazole Sodium) 40 Mg Tablet.dr 1 TAB PO DAILY for 30 Days, #30 TAB 0 Refills Prov: LELAND TOMLINSON [employer] 03/11/25 Metronidazole* (Flagyl*) 500 Mg Tablet 1 TAB PO Q12H for 7 Days, #14 TAB Prov: LELAND TOMLINSON [employer] 03/11/25 Education Educated: Patient, Family Educated regarding: diagnosis, treatment, need for follow up Signature Scribe Signature: No Scribe Attestation: The note accurately reflects work and decisions made by me.Leland Tomlinson - NEREYDA 03/11/25 17:28 LELAND TOMLINSON NP Mar 11, 2025 14:18 OHMARIAMA Charles MD Mar 16, 2025 15:18
[2025-03-11 14:51] LABS: BASOPHILS # (AUTO) 0.1 X10'3 (0-0.2); BASOPHILS % (AUTO) 0.7 % (0-1); EOSINOPHILS # (AUTO) 0.1 X10'3 (0-0.9); HEMATOCRIT 40.7 % (35.0-45.0); HEMOGLOBIN 14.1 g/dl (12.0-16.0); LYMPHOCYTES # (AUTO) 1.5 X10'3 (1.1-4.8); LYMPHOCYTES % (AUTO) 17.2 % (21-51); MEAN CORPUSCULAR HGB CONC 34.6 g/dL (33.0-36.5); MEAN CORPUSCULAR VOLUME 92.5 FL (78-98); MEAN PLATELET VOLUME 9.4 FL (7.4-10.4); MONOCYTES # (AUTO) 0.5 X10'3 (0-0.9); MONOCYTES % (AUTO) 5.5 % (2-12); NEUTROPHILS # (AUTO) 6.7 X10'3 (1.8-7.7); NEUTROPHILS % (AUTO) 75.6 % (42-75); PLATELET COUNT 296 X10'3 (140-440); RED CELL DISTRIBUTION WIDTH 12.5 % (11.5-14.5); WHITE BLOOD COUNT 8.8 X10'3 (4.5-11.0)
[2025-03-11] MEDS: mag hydrox/Alum hydrox/simeth 30ml oral suspension PO ONE (14:58)
[2025-03-11] MEDS: famotidine 20mg tablet PO ONE (15:01)
[2025-03-11] MEDS: LIDOcaine 2% Viscous 15ml cup MM ONE (15:01)
[2025-03-11 15:07] LABS: ALANINE AMINOTRANSFERASE 65 U/L (12-78); ALBUMIN/GLOBULIN RATIO 1.1 (1.1-1.5); ALKALINE PHOSPHATASE 110 IU/L (46-116); AMYLASE 45 U/L (25-115); ANION GAP 8 (8-16); ASPARTATE AMINO TRANSFERASE 26 U/L (10-37); BILIRUBIN,TOTAL 0.7 MG/DL (0.1-1.0); BLOOD UREA NITROGEN 9 MG/DL (7-18); BUN/CREATININE RATIO 11.5 (10.0-20.0); CALCIUM 8.8 MG/DL (8.5-10.1); CHLORIDE 103 MMOL/L (99-107); CREATININE 0.78 MG/DL (0.40-0.90); GLUCOSE 103 MG/DL (70-104); LIPASE 17 U/L (16-77); POTASSIUM 3.5 MMOL/L (3.5-5.1); SODIUM 135 MMOL/L (135-145); TOTAL PROTEIN 7.7 G/DL (6.4-8.2); eCRCL 74 ML/MIN; eGFR 81 ML/MIN
[2025-03-11 15:55] LABS: BILIRUBIN,URINE SMALL (Neg); CLARITY,URINE SLIGHTLY CLOUDY (Clear); COLOR,URINE YELLOW (Yellow); GLUCOSE, URINE NEGATIVE (Neg); KETONES,URINE 40 mg/dl (Neg); LEUKOCYTE ESTERASE ,URINE NEGATIVE (Neg); NITRITES, URINE NEGATIVE (Neg); OCCULT BLOOD,URINE SMALL (Neg); PROTEIN,URINE 30 mg/dl (Neg); UROBILINOGEN,URINE 0.2 E.U/dL (0.2-1.0)
[2025-03-11 15:56] LABS: URINE HCG NEGATIVE (NEG)
[2025-03-11 16:05] LABS: UA COLLECTION TYPE CLN CATCH MIDSTREAM
[2025-03-11 16:06] LABS: MUCUS STRANDS MODERATE /LPF (Neg); SQUAMOUS EPITHELIAL CELL,UR MANY /LPF (FEW)
[2025-03-11 16:07] LABS: BACTERIA,URINE 2+ /HPF (Neg)
[2025-03-11 16:09] LABS: CAL OXALATE CRYSTALS 4+ /HPF (NEGATIVE)
[2025-03-11 16:10] LABS: TRANSITIONAL EPI CELLS,URINE FEW /HPF
[2025-03-11 16:12] LABS: WBC,URINE 0-4 /HPF (0-4)
--- NOTE | 2025-03-11 17:11 | RADIOLOGY REPORT ---
Indication: ABD PAIN Technique: CT axial images of the abdomen and pelvis are obtained with intravenous contrast. Coronal and sagittal reformats were obtained. Radiation Dose Information: CTDI volume is 18.3 mGy. Dose-length product is 894 mGy*cm Comparison: CT CT ABDOMEN PELVIS W/ IV ORAL CONTRAST on DOS: 12/11/24, FINDINGS: Lung bases demonstrate no pleural effusion. Adrenal glands, spleen and pancreas unremarkable in shape. Gallbladder appears to be contracted/bebe maxine. Liver unremarkable in shape. Kidneys demonstrate no hydronephrosis, nephrolithiasis. Stomach partially distended. Small bowel loops are normal in caliber. Moderate distention large bowel loops with fluid contents. Normal appendix. Bladder is partially distended. Small amount of free pelvic fluid. No inguinal lymphadenopathy. Lmcp-ac-hgchumqr bilateral sacroiliac degenerative joint disease. Xouv-it-sfttjsgh thoracolumbar dege nerative disc disease. Infraumbilical hernia containing fat measuring 3.8 x 3.4 cm. IMPRESSION: Fluid distention of the large bowel could represent diarrheal state, colitis. Small amount of free pelvic fluid. Infraumbilical hernia containing fat measuring 3.8 cm Other findings as described.
[2025-03-11] MEDS ORDERED: LOPE1TAB46 PO (17:27)
[2025-03-11] MEDS ORDERED: METR-159 PO (17:27)
[2025-03-11] MEDS ORDERED: PANT40TA54 PO (17:27)
== END 2025-03-11 17:42 | disposition home or self-care (01) ==
LOC: ER 14:03
DX: K52.9 Noninfective gastroenteritis and colitis, unspecified (principal); Z88.1 Allergy status to other antibiotic agents; Z90.710 Acquired absence of both cervix and uterus
CPT/HCPCS: 36415; 74176; 80053; 81001; 81025; 82150; 83690; 85025; 99284; 99285